=== PATIENT | male | born 1945 | race Caucasian/White ===

== ENCOUNTER 2017-09-16 10:33 | Inpatient (IN) | payer OTHER, MEDICAID ==
[~2017-09-16] VITALS: Ht 172.7 cm; Wt 78.0 kg
[2017-09-16 10:40] VITALS: BP_SYST 113
[2017-09-16] MEDS ORDERED: fentaNYL CITRATE/PF 100 MCG/2 ML AMP IVP ONE (11:15)
[2017-09-16 11:22] LABS: HEMOGLOBIN 9.9 g/dL (14.0-18.0); WHITE BLOOD COUNT (AUTO) 18.3 K/uL (4.8-10.8)
[2017-09-16 11:26] LABS: BASOPHILS # (AUTO) 0.1 K/uL (0.0-0.2); BASOPHILS % (AUTO) 0.5 % (0.0-2.0); EOSINOPHILS # (AUTO) 0.1 K/uL (0.0-0.4); EOSINOPHILS % (AUTO) 0.8 % (0.0-4.0); HEMATOCRIT 31.2 % (36-54); LYMPHOCYTES # (AUTO) 2.6 K/uL (1.0-5.5); LYMPHOCYTES % (AUTO) 14.2 % (20.5-51.5); MEAN CORPUSCULAR HEMOGLOBIN 24 pg (27-31); MEAN CORPUSCULAR HGB CONC 32 % (32-36); MEAN CORPUSCULAR VOLUME 75 fL (79.0-98.0); MONOCYTES # (AUTO) 3.4 K/uL (0.0-1.0); MONOCYTES % (AUTO) 18.5 % (1.7-9.3); NEUTROPHILS # (AUTO) 12.1 K/uL (1.8-7.7); PLATELET COUNT (AUTO) 251 K/uL (130-430); RED BLOOD CELL COUNT(AUTO) 4.15 MIL/uL (4.2-6.2); RED CELL DISTRIBUTION WIDTH 28.3 % (9.0-15.0)
[2017-09-16 11:42] LABS: ANION GAP 16 (5-15); CHLORIDE 99 mmol/L (98-107); CREATININE 2.79 mg/dL (0.55-1.30); GLUCOSE 114 mg/dL (70-99); POTASSIUM 3.9 mmol/L (3.5-5.1); SODIUM SERUM 135 mmol/L (136-145); UREA NITROGEN, BLOOD 47 mg/dL (8-21)
[2017-09-16 11:49] LABS: ALANINE AMINOTRANSFERASE 57 U/L (12-78); ALBUMIN 3.1 g/dL (3.4-4.8); ASPARTATE AMINOTRANSFERASE 47 U/L (10-37); TOTAL BILIRUBIN 0.6 mg/dL (0.0-1.0)
[2017-09-16 12:01] LABS: INR 1.4 (0.80-1.20); PROTHROMBIN TIME 14.6 SECS (9.5-12.5)
[2017-09-16 13:19] LABS: BILIRUBIN,URINE NEGATIVE (NEGATIVE); BLOOD, URINE NEGATIVE (NEGATIVE); CLARITY/URINE SL HAZY (CLEAR); COLOR,URINE YELLOW (YELLOW); GLUCOSE,URINE NEGATIVE (NEGATIVE); KETONES,URINE NEGATIVE (NEGATIVE); LEUKOCYTE ESTERASE ,URINE NEGATIVE (NEGATIVE); NITRITE, URINE NEGATIVE (NEGATIVE); PH,URINE 5.5 (5.0-8.0); PROTEIN URINE TRACE (NEGATIVE); UROBILINOGEN,URINE 0.2 (0.2-1.0)
[2017-09-16] MEDS ORDERED: cefTRIAXone 1 GM in LIDOCAINE 1%, 20 ML MDV 2.1 ML IM ONE (13:45)
[2017-09-16 13:57] LABS: BACTERIA,URINE MODERATE /HPF (None Seen); RBC,URINE 0-3 /HPF (0-3); WBC,URINE 0-3 /HPF (0-3)
[2017-09-16 13:58] LABS: HYALINE CASTS, URINE 0-10 /LPF (None Seen); URINE AMORPHOUS URATE 1+ /HPF (None Seen)
[2017-09-16 14:00] LABS: COARSE GRANULAR CASTS,URINE 0-10 /LPF (None Seen); MUCUS,URINE 2+ /LPF (None Seen)
[2017-09-16] MEDS ORDERED: DEC4 PO (14:08)
[2017-09-16] MEDS ORDERED: TAMS-11 PO (14:08)
[2017-09-16] MEDS ORDERED: CALC-939 PO (14:08)
[2017-09-16] MEDS ORDERED: ONDA4TAB22 PO (14:08)
[2017-09-16] MEDS ORDERED: MAGN400T10 PO (14:08)
[2017-09-16] MEDS ORDERED: FENT1PAT10 TD (14:08)
[2017-09-16] MEDS ORDERED: FERR-57 PO (14:08)
[2017-09-16] MEDS ORDERED: DEXL30CA3 PO (14:08)
[2017-09-16] MEDS ORDERED: OXYC60TA8 PO (14:08)
[2017-09-16] MEDS ORDERED: VANCOMYCIN HCL 1,000 MG in NS 250 ML IV ONE (14:45)
[2017-09-16] MEDS ORDERED: NACL 0.9% 1,000 ML IV ONE (14:45)
[2017-09-16 15:36] VITALS: BP_SYST 126
[2017-09-16] MEDS ORDERED: PREG150C PO (15:51)
[2017-09-16] MEDS ORDERED: ONDANSETRON 4 MG ODT TAB PO PRN (19:15)
[2017-09-16] MEDS ORDERED: ACETAMINOPHEN 650 MG SUPP.RECT RC PRN (19:15)
[2017-09-16] MEDS ORDERED: MILK OF MAGNESIA 30 ML UDC PO PRN (19:15)
[2017-09-16] MEDS ORDERED: oxyCODONE HCL 10 MG TAB.ER.12H PO PRN (19:15)
[2017-09-16] MEDS ORDERED: ONDANSETRON HCL 4 MG/2 ML VIAL IVP PRN (19:30)
[2017-09-16 20:00] VITALS: BP_SYST 135
[2017-09-16] MEDS: KCL 20 mEq in 0.45% NS 1000 mL 1,000 ML IV SCH (20:48)
[2017-09-16] MEDS: ENOXAPARIN SODIUM 30 MG/0.3 ML SYRINGE SUBCUT SCH (20:49)
[2017-09-16] MEDS: FERROUS SULFATE 325 MG TABLET.DR PO SCH (20:49)
[2017-09-16] MEDS: KETOROLAC TROMETHAMINE 30 MG VIAL IVP PRN (20:50)
[2017-09-16] MEDS ORDERED: PIPERACILLIN/TAZO 3.375/DEX-IS 50 ML IV ONE (21:00)
[2017-09-16 23:45] VITALS: BP_SYST 134
[2017-09-17] MEDS: PIPERACILLIN/TAZO 3.375/DEX-IS 50 ML IV SCH ×4 (05:28→23:41)
[2017-09-17 07:12] LABS: HEMATOCRIT 27.3 % (36-54); HEMOGLOBIN 8.5 g/dL (14.0-18.0); MEAN CORPUSCULAR HGB CONC 31 % (32-36); MEAN CORPUSCULAR VOLUME 76 fL (79.0-98.0); PLATELET COUNT (AUTO) 144 K/uL (130-430); RED CELL DISTRIBUTION WIDTH 28.6 % (9.0-15.0); WHITE BLOOD COUNT (AUTO) 8.5 K/uL (4.8-10.8)
[2017-09-17 07:44] LABS: ANION GAP 8 (5-15); CHLORIDE 108 mmol/L (98-107); CREATININE 1.32 mg/dL (0.55-1.30); GLUCOSE 111 mg/dL (70-99); POTASSIUM 3.8 mmol/L (3.5-5.1); SODIUM SERUM 139 mmol/L (136-145); UREA NITROGEN, BLOOD 27 mg/dL (8-21)
[2017-09-17 07:53] LABS: CALCIUM 6.7 mg/dL (8.4-11.0)
[2017-09-17 07:55] VITALS: BP_SYST 139
[2017-09-17] MEDS: PANTOPRAZOLE SODIUM 40 MG TAB PO SCH (08:16)
[2017-09-17] MEDS: CALCIUM CARBONATE/VITAMIN D3 1 TAB TABLET PO SCH (08:16)
[2017-09-17] MEDS: oxyCODONE HCL 5 MG TABLET PO PRN ×2 (08:16→18:49)
[2017-09-17] MEDS: FERROUS SULFATE 325 MG TABLET.DR PO SCH ×3 (08:16→20:22)
[2017-09-17] MEDS: TAMSULOSIN HCL 0.4 MG CAP PO SCH (08:17)
[2017-09-17] MEDS: KCL 20 mEq in 0.45% NS 1000 mL 1,000 ML IV SCH ×2 (08:18→15:15)
[2017-09-17] MEDS ORDERED: fentaNYL 100 MCG/HR PATCH TD SCH (09:00)
[2017-09-17 10:10] LABS: ATYPICAL LYMPHOCYTES % 0 % (0-0); BAND % (MANUAL) 1 % (0-6); BASOPHILS % (MANUAL) 0 % (0-2); EOSINOPHILS % (MANUAL) 1 % (0-7); LYMPHOCYTES % (MANUAL) 16 % (20-46); MONOCYTES % (MANUAL) 10 % (0-11)
[2017-09-17 12:09] VITALS: BP_SYST 133
[2017-09-17] MEDS ORDERED: LEVOFLOXACIN 500 MG/D5W 100 ML IV ONE (13:30)
[2017-09-17] MEDS: VANCOMYCIN HCL 1,250 MG in NS 250 ML IV SCH (15:34)
[2017-09-17 16:49] VITALS: BP_SYST 134
[2017-09-17 17:20] LABS: BILIRUBIN,URINE NEGATIVE (NEGATIVE); BLOOD, URINE NEGATIVE (NEGATIVE); CLARITY/URINE CLEAR (CLEAR); COLOR,URINE YELLOW (YELLOW); GLUCOSE,URINE NEGATIVE (NEGATIVE); KETONES,URINE NEGATIVE (NEGATIVE); LEUKOCYTE ESTERASE ,URINE NEGATIVE (NEGATIVE); NITRITE, URINE NEGATIVE (NEGATIVE); PROTEIN URINE NEGATIVE (NEGATIVE); UROBILINOGEN,URINE 0.2 (0.2-1.0)
[2017-09-17 20:10] VITALS: BP_SYST 125
[2017-09-17] MEDS: DOCUSATE SODIUM 100 MG CAPSULE PO SCH (20:22)
[2017-09-17] MEDS: ENOXAPARIN SODIUM 30 MG/0.3 ML SYRINGE SUBCUT SCH (20:23)
[2017-09-17] MEDS: SENNOSIDES 8.6 MG TABLET PO SCH (20:23)
[2017-09-17 23:29] VITALS: BP_SYST 124
[2017-09-17] MEDS: PROMETHAZINE 6.25 MG/ CODEINE 10 MG/ 5 ML PO PRN (23:40)
[2017-09-18] MEDS: KCL 20 mEq in 0.45% NS 1000 mL 1,000 ML IV SCH ×3 (05:16→20:30)
[2017-09-18] MEDS: PIPERACILLIN/TAZO 3.375/DEX-IS 50 ML IV SCH ×3 (05:16→17:42)
[2017-09-18] MEDS: KETOROLAC TROMETHAMINE 30 MG VIAL IVP PRN (05:57)
[2017-09-18 07:17] LABS: ANION GAP 7 (5-15); CALCIUM 7.2 mg/dL (8.4-11.0); CHLORIDE 107 mmol/L (98-107); CREATININE 0.81 mg/dL (0.55-1.30); GLUCOSE 107 mg/dL (70-99); POTASSIUM 4.3 mmol/L (3.5-5.1); SODIUM SERUM 138 mmol/L (136-145); UREA NITROGEN, BLOOD 12 mg/dL (8-21)
[2017-09-18 07:52] LABS: TOTAL IRON BIND. CAPACITY 338 ug/dL (250-450)
[2017-09-18 07:56] LABS: BASOPHILS % (AUTO) 0.3 % (0.0-2.0); EOSINOPHILS # (AUTO) 0.1 K/uL (0.0-0.4); EOSINOPHILS % (AUTO) 1.6 % (0.0-4.0); HEMOGLOBIN 8.7 g/dL (14.0-18.0); LYMPHOCYTES # (AUTO) 1.4 K/uL (1.0-5.5); LYMPHOCYTES % (AUTO) 21.4 % (20.5-51.5); MEAN CORPUSCULAR HEMOGLOBIN 24 pg (27-31); MEAN CORPUSCULAR HGB CONC 31 % (32-36); MEAN CORPUSCULAR VOLUME 76 fL (79.0-98.0); MONOCYTES # (AUTO) 0.9 K/uL (0.0-1.0); MONOCYTES % (AUTO) 13.9 % (1.7-9.3); NEUTROPHILS % (AUTO) 62.8 % (40.0-70.0); RED BLOOD CELL COUNT(AUTO) 3.69 MIL/uL (4.2-6.2); RED CELL DISTRIBUTION WIDTH 29.3 % (9.0-15.0); WHITE BLOOD COUNT (AUTO) 6.4 K/uL (4.8-10.8)
[2017-09-18 08:00] VITALS: BP_SYST 128
[2017-09-18 08:12] LABS: IMMUNOGLOBULIN G, SERUM 662 mg/dL (700-1600); IMMUNOGLOBULIN M, SERUM 83 mg/dL (15-143)
[2017-09-18] MEDS: TAMSULOSIN HCL 0.4 MG CAP PO SCH (08:23)
[2017-09-18] MEDS: CALCIUM CARBONATE/VITAMIN D3 1 TAB TABLET PO SCH (08:24)
[2017-09-18] MEDS: PANTOPRAZOLE SODIUM 40 MG TAB PO SCH (08:24)
[2017-09-18] MEDS: DOCUSATE SODIUM 100 MG CAPSULE PO SCH ×2 (08:24→20:31)
[2017-09-18] MEDS: LEVOFLOXACIN 500 MG/D5W 100 ML IV SCH (08:24)
[2017-09-18] MEDS: FERROUS SULFATE 325 MG TABLET.DR PO SCH ×3 (08:24→20:31)
[2017-09-18 08:53] LABS: PLATELET COUNT (AUTO) 148 K/uL (130-430)
[2017-09-18 09:14] LABS: MEAN CORPUSCULAR HEMOGLOBIN 24 pg (27-31)
[2017-09-18] MEDS: PROMETHAZINE 6.25 MG/ CODEINE 10 MG/ 5 ML PO PRN ×2 (09:20→23:08)
[2017-09-18 09:24] LABS: RETICULOCYTE COUNT 1.7 % (0.5-1.5)
[2017-09-18 12:05] VITALS: BP_SYST 125
[2017-09-18] MEDS ORDERED: FOLIC ACID 1 MG TABLET PO ONE (12:30)
[2017-09-18] MEDS: VANCOMYCIN HCL 1,250 MG in NS 250 ML IV SCH (13:58)
[2017-09-18 16:00] VITALS: BP_SYST 141
[2017-09-18 20:00] VITALS: BP_SYST 140
[2017-09-18] MEDS: SENNOSIDES 8.6 MG TABLET PO SCH (20:31)
[2017-09-18] MEDS: ENOXAPARIN SODIUM 30 MG/0.3 ML SYRINGE SUBCUT SCH (20:31)
[2017-09-18 23:55] VITALS: BP_SYST 145
[2017-09-19 06:11] LABS: BASOPHILS % (AUTO) 0.3 % (0.0-2.0); EOSINOPHILS # (AUTO) 0.1 K/uL (0.0-0.4); EOSINOPHILS % (AUTO) 1.4 % (0.0-4.0); HEMATOCRIT 27.1 % (36-54); HEMOGLOBIN 8.4 g/dL (14.0-18.0); LYMPHOCYTES # (AUTO) 1.1 K/uL (1.0-5.5); LYMPHOCYTES % (AUTO) 22.9 % (20.5-51.5); MEAN CORPUSCULAR HEMOGLOBIN 23 pg (27-31); MEAN CORPUSCULAR HGB CONC 31 % (32-36); MEAN CORPUSCULAR VOLUME 76 fL (79.0-98.0); MONOCYTES # (AUTO) 0.7 K/uL (0.0-1.0); MONOCYTES % (AUTO) 13.2 % (1.7-9.3); NEUTROPHILS % (AUTO) 62.2 % (40.0-70.0); PLATELET COUNT (AUTO) 150 K/uL (130-430); RED BLOOD CELL COUNT(AUTO) 3.57 MIL/uL (4.2-6.2); RED CELL DISTRIBUTION WIDTH 29.1 % (9.0-15.0); WHITE BLOOD COUNT (AUTO) 4.9 K/uL (4.8-10.8)
[2017-09-19 07:12] LABS: FOLATE (FOLIC ACID) 11.6 ng/mL (>3.0)
[2017-09-19 08:00] VITALS: BP_SYST 171
[2017-09-19] MEDS: CALCIUM CARBONATE/VITAMIN D3 1 TAB TABLET PO SCH (08:48)
[2017-09-19] MEDS: KCL 20 mEq in 0.45% NS 1000 mL 1,000 ML IV SCH ×2 (08:48→22:23)
[2017-09-19] MEDS: PANTOPRAZOLE SODIUM 40 MG TAB PO SCH (08:49)
[2017-09-19] MEDS: DOCUSATE SODIUM 100 MG CAPSULE PO SCH ×2 (08:49→20:38)
[2017-09-19] MEDS: LEVOFLOXACIN 500 MG/D5W 100 ML IV SCH (08:49)
[2017-09-19] MEDS: FERROUS SULFATE 325 MG TABLET.DR PO SCH ×3 (08:49→20:38)
[2017-09-19] MEDS: TAMSULOSIN HCL 0.4 MG CAP PO SCH (08:49)
[2017-09-19] MEDS ORDERED: FOLIC ACID 1 MG TABLET PO SCH (09:00)
[2017-09-19 12:39] VITALS: BP_SYST 124
[2017-09-19] MEDS: VANCOMYCIN HCL 1,250 MG in NS 250 ML IV SCH (14:58)
[2017-09-19 16:14] VITALS: BP_SYST 151
[2017-09-19 20:00] VITALS: BP_SYST 133
[2017-09-19] MEDS: SENNOSIDES 8.6 MG TABLET PO SCH (20:38)
[2017-09-19] MEDS: ENOXAPARIN SODIUM 30 MG/0.3 ML SYRINGE SUBCUT SCH (20:38)
[2017-09-20 00:50] VITALS: BP_SYST 155
[2017-09-20 06:36] LABS: ALANINE AMINOTRANSFERASE 48 U/L (12-78); ALBUMIN 2.5 g/dL (3.4-4.8); ANION GAP 6 (5-15); ASPARTATE AMINOTRANSFERASE 70 U/L (10-37); CALCIUM 8.4 mg/dL (8.4-11.0); CHLORIDE 108 mmol/L (98-107); CREATININE 0.68 mg/dL (0.55-1.30); GLUCOSE 100 mg/dL (70-99); POTASSIUM 4.6 mmol/L (3.5-5.1); SODIUM SERUM 139 mmol/L (136-145); TOTAL BILIRUBIN 0.3 mg/dL (0.0-1.0); UREA NITROGEN, BLOOD 9 mg/dL (8-21)
[2017-09-20 07:00] LABS: BASOPHILS % (AUTO) 0.6 % (0.0-2.0); EOSINOPHILS # (AUTO) 0.1 K/uL (0.0-0.4); EOSINOPHILS % (AUTO) 2.3 % (0.0-4.0); HEMOGLOBIN 8.7 g/dL (14.0-18.0); LYMPHOCYTES # (AUTO) 1.1 K/uL (1.0-5.5); LYMPHOCYTES % (AUTO) 31.5 % (20.5-51.5); MEAN CORPUSCULAR HEMOGLOBIN 24 pg (27-31); MEAN CORPUSCULAR HGB CONC 31 % (32-36); MEAN CORPUSCULAR VOLUME 77 fL (79.0-98.0); MONOCYTES # (AUTO) 0.6 K/uL (0.0-1.0); MONOCYTES % (AUTO) 15.8 % (1.7-9.3); NEUTROPHILS # (AUTO) 1.7 K/uL (1.8-7.7); NEUTROPHILS % (AUTO) 49.8 % (40.0-70.0); PLATELET COUNT (AUTO) 151 K/uL (130-430); RED BLOOD CELL COUNT(AUTO) 3.62 MIL/uL (4.2-6.2); RED CELL DISTRIBUTION WIDTH 30.2 % (9.0-15.0); WHITE BLOOD COUNT (AUTO) 3.5 K/uL (4.8-10.8)
[2017-09-20 07:06] LABS: TOTAL IRON BIND. CAPACITY 320 ug/dL (250-450)
[2017-09-20 07:40] VITALS: BP_SYST 148
[2017-09-20 09:18] VITALS: BP_SYST 148
[2017-09-20] MEDS ORDERED: LEVO500T20 PO (10:27)
[2017-09-20] MEDS ORDERED: LACT1CAP72 PO (10:28)
[2017-09-23 04:06] LABS: FOLATE (FOLIC ACID) 14.4 ng/mL (>3.0)
== END 2017-09-20 10:30 | disposition home or self-care (01) | DRG 871 ==
LOC: SED 10:33 → SMU 14:37
PROVIDERS: ADMIT Family Medicine; ATTEND Family Medicine
DX: A41.9 Sepsis, unspecified organism (principal); N17.0 Acute kidney failure with tubular necrosis; E46 Unspecified protein-calorie malnutrition; J18.9 Pneumonia, unspecified organism; C79.51 Secondary malignant neoplasm of bone; G20 Parkinson's disease; E86.0 Dehydration; G62.9 Polyneuropathy, unspecified; C44.90 Unspecified malignant neoplasm of skin, unspecified; J44.0 Chronic obstructive pulmonary disease with (acute) lower respiratory infection; B18.2 Chronic viral hepatitis C; D50.9 Iron deficiency anemia, unspecified; I10 Essential (primary) hypertension; K57.30 Diverticulosis of large intestine without perforation or abscess without bleeding; N40.0 Benign prostatic hyperplasia without lower urinary tract symptoms; Z96.659 Presence of unspecified artificial knee joint; F41.9 Anxiety disorder, unspecified; Z92.21 Personal history of antineoplastic chemotherapy; Z85.828 Personal history of other malignant neoplasm of skin; Z87.891 Personal history of nicotine dependence; Z91.19 Patient's noncompliance with other medical treatment and regimen; Z88.6 Allergy status to analgesic agent; Z88.8 Allergy status to other drugs, medicaments and biological substances; Z80.9 Family history of malignant neoplasm, unspecified; Z68.26 Body mass index [BMI] 26.0-26.9, adult
CPT/HCPCS: 36415; 71045; 76770; 80048; 80053; 81000-TC; 81003; 82272; 82550-TC; 82607; 82728; 82746; 82784; 83540-TC; 83550-TC; 83605; 83880; 84484; 85007; 85025; 85027; 85044-TC; 85610-TC; 85730-TC; 87040-TC; 87070-TC; 87086; 87205-TC; 93005; 96365; 96366; 96372; 96375; 99285; J0696; J1650; J1885; J1956; J2001; J2543; J3010; J3370; J3480; J7050

== ENCOUNTER 2018-07-10 15:03 | Emergency (ER) | payer OTHER, MEDICAID ==
[~2018-07-10] VITALS: Ht 172.7 cm; Wt 78.9 kg
[~2018-07-10 15:03] MED LIST: ACYC400T PO; ARTT OP; CALC-939 PO; DEC4 PO; DEXL60CA4 PO; FENT1PAT10 TD; FERR-57 PO; LENA10CA PO; OXYC60TA8 PO; POLY17PO4 PO; PREG150C PO; SULF1TAB48 PO; TAMS-11 PO; TEMA15CA5 PO
[2018-07-10 15:08] VITALS: BP_SYST 160
[2018-07-10] MEDS ORDERED: fentaNYL CITRATE/PF 100 MCG/2 ML AMP IM ONE (15:45)
[2018-07-10 16:48] VITALS: BP_SYST 167
== END 2018-07-10 16:48 | disposition home or self-care (01) ==
LOC: SED 15:03
DX: G89.29 Other chronic pain (principal); R10.84 Generalized abdominal pain; R03.0 Elevated blood-pressure reading, without diagnosis of hypertension; Z85.828 Personal history of other malignant neoplasm of skin; Z85.830 Personal history of malignant neoplasm of bone; Z79.899 Other long term (current) drug therapy
CPT/HCPCS: 96372; 99283; J3010